=== PATIENT | female | born 1955 | race Caucasian/White ===

== ENCOUNTER 2017-04-23 12:33 | Day surgery (SDC) | payer OTHER ==
[~2017-04-23] VITALS: Ht 157.5 cm; Wt 60.5 kg
[2017-04-23] VITALS (7 sets, daily range): BP systolic 127–143; BP diastolic 53–82; PULSE 54–71; RESP 12–16; O2SAT 95–100
[~2017-04-23 12:33] MED LIST: ESTR0.9T PO; GABA-502 PO; POTA5TAB2 PO; PREM125 PO; TOLT2CAP8 PO
[2017-04-23] MEDS ORDERED: Ondansetron 2 mg/mL 2 mL Inj ONE (12:34)
[2017-04-23] MEDS ORDERED: Glycopyrrolate 0.2 MG/ML 1mL Inj ONE (12:34)
[2017-04-23] MEDS ORDERED: Dexamethasone 4 mg/mL Inj ONE (12:34)
[2017-04-23] MEDS ORDERED: fentaNYL-PF 50 mCg/mL 2 mL Inj ONE (12:34)
[2017-04-23] MEDS ORDERED: Propofol 10 mg/mL 20 mL Inj ONE (12:34)
[2017-04-23] MEDS: Lactated Ringer's 1,000 ML IV SCH ×2 (12:40→17:28)
[2017-04-23] MEDS ORDERED: levoFLOXacin 500 mg/100 mL D5W Premix IV ONE (13:04)
[2017-04-23] MEDS ORDERED: Iopamidol-300 50 mL Inj IV ONE (17:34)
[2017-04-23] MEDS: levoFLOXacin Inj 500 MG in IV Premix 1 EACH IV ONE ×2 (17:35→17:37)
[2017-04-23] MEDS ORDERED: Lactated Ringer's 500 ML IV PRN (17:49)
[2017-04-23] MEDS ORDERED: Lactated Ringer's 1,000 ML IV SCH (17:49)
--- NOTE | 2017-04-23 17:49 | PCM.HPANE ---
Patient Data Surgeon Admitting Provider: Attending Provider:José Luis Constantino MD Primary Care Physician:Oziel Bailey MD Other Provider:Elmer Retana Anesthesia Reason for Visit Left Kidney Stone Ht/WT & BMI Height (Feet): 5 Height (Inches): 2 Weight (Kilograms): 60.5 Body Mass Index 24.00 Allergies Coded Allergies: haloperidol (Verified Adverse Reaction, Severe, hallucinations, 04/23/17) lorazepam (Verified Adverse Reaction, Severe, hallucinations, 04/23/17) Past Anesthesia History Anesthesia History: Denies:: Abnormal Airway, Anesthesia Reactions, Difficult Intubation, Fam Anesthesia Reaction, Malignant Hyperthermia Diabetes History Hx Diabetes?: No MRSA MRSA: No Medications Hypertension Medication: No Home Meds Incl Beta Breann: No Reported Medications Tolterodine Tartrate ER 2 Mg Capsule2 Mg PO DAILY 04/22/17 Estrogens, Conjugated (Premarin)0.9 Mg Tablet0.9 Mg PO 2xweekly 30 Days alternate with 1.25mg dose 04/22/17 Estrogens Conjugated (Premarin)1.25 Mg Tab1.25 Mg PO 5xweekly 30 Days 04/22/17 Potassium Citrate ER 5 Meq Tablet5 Meq PO BID Ref 0 TAKE WITH FOOD 04/22/17 Gabapentin 300 Mg [id number] Mg PO QID Ref 0 04/22/17 Discontinued Reported Medications Ondansetron (Zofran)8 Mg Tablet8 Mg PO Q8H PRN For Nausea 01/02/16 Gabapentin 300 Mg [id number] Mg PO QID Ref 0 01/02/16 Estrogens Conjugated (Premarin)1.25 Mg Tab1.25 Mg PO DAILY 30 Days 01/02/16 History History of ENT Problems?: Yes HEENT History: Positive for:: TMJ (occasional, occas nightguard) Denies:: Abnormal Airway Cataracts Difficult Intubation Dysphagia Glaucoma Hearing Problem Sinus Problem Denture Type: None Teeth Condition: Broken Teeth Hx of Heart Problems?: No Cardiovascular History: Denies:: AICD Abdominal Aortic Aneurism Atrial Fibrillation Cardiac Surgery Chest Pain Congestive Heart Failure Coronary Artery Disease Edema Heart Murmur Hypertension Irregular Heartbeat Pacemaker Peripheral Vascular Rheumatic Fever Thrombophlebitis Valvular Heart Disease Hx of Respiratory Problem?: No Respiratory History: Denies:: Asthma COPD Chest Surgery Cough Dyspnea Emphysema Hemoptysis Oxygen Administration Pneumonia Pulmonary Embolism Tuberculosis Use of C-PAP Machine Use of Inhalers / NEBS Hx Neurologic Problems?: Yes Neurological History: Denies:: Alzheimer's Disease CVA Dementia Dizziness Headaches Multiple Sclerosis Parkinson's Disease Peripheral Neuropathy Seizures TIA Hx of GI Problems?: Yes Other GI Pertinent History: IBS- constipation/ hx of multiple small bowel obstructions Hx of Problems?: Yes Genitourinary History: Positive for:: Kidney Stones (left stone current admission, mult prior stones) Female Hx: Denies:: Currently (hysterectomy) Problems with Breasts? Skin History: Denies:: History Skin Disorders? Pressure Ulcers Hx Musculoskeletal Problems?: No Musculoskeletal History: Denies:: Back Injury Fibromyalgia Joint Replacement Musculoskeletal Trauma Myasthenia Gravis Osteoarthritis Hx of Psycho/Social Problems?: Yes Psycho Social History: Positive for:: Anxiety Hx Depression Hx Surgeries?: Yes (AMOS,APPY,ESWL X5,ELROY,MULT CYSTOS,RT STENT PLCMT & REMOVAL ,LITHOTRIPSY) Hx Any Other Health Problems?: Yes Other History: Denies:: Cancer Hospitalization Thyroid Disease History Blood Transfusions: Positive for:: Accept Blood Products? Denies:: Blood Transfusions Hx Diabetes: No Hx Alcohol Use: YesAlcoholic Drinks Per Day: holidaysHx Substance Use: Yes ( MARIJUANA- daily inhale,pill and edible ) Smoking Status: Former Smoker Have You Smoked inLast 12 mo: No Stop/Bang S-Snoring: Do You Snore Loudly: No T-Tired: feel tired, fatigued: No O-Obsered: Observed not breath: No P-Blood Pressure: treated: No B- Body Mass Index > 35 kg/m2: No A- Age over 50: Yes N- Neck Large Circumference: No G- Gender Male: No RACIEL Total Score: 1 RACIEL Risk Assessment: Low Risk, <3 Yes Risk Assessment Category Category 1A: Patient has history of documented sleep apnea, and HAS NOT received any narcotic, sedative or anesthesia administration during this stay. Category 1B: Patient has history of documented sleep apnea, and HAS received any narcotic , sedative or anesthesia administration during this stay Category 2: Patient has SUSPECTED Obstructive Sleep Apnea, and HAS received any narcotic , sedative or anesthesia administration during this stay. Category 3: Patient has SUSPECTED Obstructive Sleep Apnea and HAS NOT received narcotic, sedative or anesthesia administration during this stay. Category 4: Outpatient in Procedural Areas with known sleep apnea or who screen positive for High Risk via the STOP/BANG questionnaire. Exam Exam Vital Signs Vital Signs Date Time Temp Pulse Resp B/P Pulse Ox O2 Delivery O2 Flow Rate FiO2 04/23/17 13:01 36.4 54 16 131/64 95 Room Air General Appearance: Alert, Oriented X3, Cooperative, No Acute Distress HEENT/AIRWAY: MP 2 Lungs: Clear to Auscultation, Normal Air Movement Heart: Exam Unremarkable, Regular Rate/Rhythm, No Murmurs/Rubs/Gallops Meds/Labs/Diagnostics Admission Meds Current Medications Lactated Ringer's (Lr) 1,000 ml @ 120 mls/hr Q8H20M IV Last administered on t 12:40; Start 04/23/17 at 05:00; Stop 04/23/17 at 13:19; Status DC Plan Impression Patient chart reviewed, patient interviewed and anesthestic plan with risks, benefits, and alternatives discussed, and informed consent obtained. NPO per Anesth. Guidelines: Yes ASA Physical Status: ASA2 Mod Systemic Disease Anesthetic Plan: GA Bene/Risks/Altern/Consents: Yes HP Complete Prior to Induction: Yes Dominic Braden MD Apr 23, 2017 14:53
[2017-04-23] MEDS ORDERED: Labetalol 5 mg/mL 4 mL Inj IV PRN (17:50)
[2017-04-23] MEDS ORDERED: EPHEDrine Sulfate 50 mg/mL Inj IVPUSH PRN (17:50)
[2017-04-23] MEDS ORDERED: Atropine 0.4 mg/mL Inj IVPUSH PRN (17:50)
[2017-04-23] MEDS ORDERED: Phenylephrine 10,000 mCg/mL Inj IVPUSH PRN (17:50)
[2017-04-23] MEDS ORDERED: Ondansetron 2 mg/mL 2 mL Inj IVPUSH PRN (17:50)
[2017-04-23] MEDS ORDERED: HYDROmorphone 1 mg/mL Inj IVPUSH PRN (17:50)
[2017-04-23] MEDS ORDERED: MetoCLOpramide 5 mg/mL 2 mL Inj IVPUSH PRN (17:50)
[2017-04-23] MEDS ORDERED: Belladonna Alk-Opium 60 mg Rectal Suppository RECTAL ONE ×2 (18:23→19:09)
--- NOTE | 2017-04-23 19:24 | PCM.SURGPO ---
Immediate Operative Note Date of Surgery: Apr 23, 2017 Pre Operative Diagnosis L renal calculi Post Operative Diagnosis L renal calculi Procedure Cystoscopy, L ureteroscopy, Holmium laser lithotripsy, basket extraction of calculi fragments, and L ureteral stent placement (modifier 22) Surgeon and Supervisor Blood Surgeon: José Luis Constantino MD Assistants: None Findings Cystoscopy revealed no bladder tumors, lesions, or calculi. L semi-rigid ureteroscopy revealed no calculi in L distal or L mid ureter. A 12/14F x 35cm ureteral access sheath was placed in L ureter. L flexible ureteroscopy revealed no calculi in L proximal ureter and many (>15) L renal calculi ( largest approx. 6-7mm). Holmium laser lithotripsy and basket extraction of calculi fragments were performed. L ureteral stent was placed. Complications There were no periprocedural complications identified. Surgical Specimen Removed: Yes Specimen sent to Pathology: No Surgical Specimen description: L renal calculi and L renal calculi fragments sent to lab for stone analysis Anesthetic Administered: GA Grafts, Implants: Other (28cm x 5F L ureteral JJ stent (no string)) Output, Estimated Blood Loss: <5 Blood Admin during surgery: No Additional information Patient to return to see me in 1-1.5 weeks for cystoscopy, stent removal, and post-op visit, with a KUB prior to appt. José Lusi Constantino MD Apr 23, 2017 19:24
[2017-04-23] MEDS: fentaNYL-PF 50 mCg/mL 2 mL Inj IVPUSH PRN ×2 (19:25→19:31)
--- NOTE | 2017-04-23 19:25 | PCM.DISURG ---
Surgical Discharge Instruction Date of Service Apr 23, 2017 Dates of Hospitalization Date of Hospital Admission Apr 23, 2017 Providers Admitting Physician: José Luis Constantino MD Primary Care Physician: Oziel Bailey MD Attending Physician: José Luis Constantino MD Discharge Diagnosis Discharge Diagnosis L renal calculi Post Operative diagnosis L renal calculi Diet Discharge Diet: No restrictions, Other (Drink at least 10-12 8oz. glasses (3 liters) of fluids per day) Activity Discharge Activity-General: No restrictions, No driving while taking narcotic Dressing and Incisional Care Hygiene: May shower Follow Up Plan Follow-up Provider (F9): José Luis Constantino MD Follow-up appointment: Weeks (1-1.5 weeks for cystoscopy, stent removal, and post-op visit, with a KUB prior to appt.) Call your provider for: Fever, Chills, Vomiting, Other (Pain uncontrolled by pain medication) José Luis Constantino MD Apr 23, 2017 19:25
--- NOTE | 2017-04-23 19:25 | PCM.ANEP1 ---
Post Anesthesia PACU Phase 1 Assessment Vital Signs VSS, see [employer] notes Vital Signs Date Time Temp Pulse Resp B/P Pulse Ox O2 Delivery O2 Flow Rate FiO2 04/23/17 13:01 36.4 54 16 131/64 95 Room Air Anesthetic Administered: GA Level of Alertness: Awake, talking CARDENAS's with Equal Strength: Yes Pain: No Nausea or Vomiting: No CV Function & Hydration Stable: Yes Airway Device: Oxygen Delivery: Simple Mask Lungs: Clear to Auscultation, Normal Air Movement PACU Phase 2 Assessment Complications: No Follow up Care: N/A Patient Instructions Provided: N/A Dominic Braden MD Apr 23, 2017 19:25
[2017-04-23] MEDS ORDERED: oxyCODONE-Acetamin 5-325 mg Tablet PO PRN (19:30)
[2017-04-23] MEDS ORDERED: Phenazopyridine 97.5 mg Tablet ONE (19:54)
--- NOTE | 2017-04-24 09:54 | DRSVH ---
PROCEDURE: X-RAY RETROGRADE UROGRAPHY INDICATIONS: CYSTO, LEFT STENT PLACEMENT, LEFT UTEROSCOPY,LASER TECHNIQUE: One intra-operative images acquired by the Urology service. COMPARISON: None. FINDINGS: Left retrograde pyelography with wire and scope in place, contrast opacified renal collect ing system demonstrated. IMPRESSION: Intraoperative left pyelography. Dictated by: Daniel Parish M.D. on 04/24/2017 at 9:51 Approved by: Daniel Parish M.D. on 04/24/2017 at 9:52
--- NOTE | 2017-04-24 14:55 | OP ---
[address] [address] OPERATIVE REPORT PATIENT: AIDEN LOBO : 1955 MR#: [id number] ADMIT: 04/23/2017 JOB ID: [id number] DATE OF SURGERY: 04/23/2017 PREOPERATIVE DIAGNOSIS(ES): Left renal calculi. POSTOPERATIVE DIAGNOSIS(ES): Left renal calculi. PROCEDURE: 1. Cystoscopy. 2. Left ureteroscopy. 3. Holmium laser lithotripsy. 4. Basket extraction of calculi fragments. 5. Left ureteral stent placement. 6. Modifier 22. SURGEON: José Luis Constantino MD. PATHOLOGY COLLECTOR: None. ANESTHESIA: General. ESTIMATED BLOOD LOSS: Less than 5 mL. SPECIMENS: Left renal calculi and left renal calculi fragments, sent to Lab for stone analysis. DRAINS: A 28 cm x 5-Ugandan left ureteral double-J stent. COMPLICATIONS: None. CONDITION: Stable. FINDINGS: Cystoscopy revealed no bladder tumors, lesions, or calculi. Left semi-rigid ureteroscopy revealed no calculi in the left distal or left mid ureter. A 12/14-Ugandan x 35 cm ureteral access sheath was placed in left ureter. Left flexible ureteroscopy revealed no calculi in the left proximal ureter and many (greater than 15) left renal calculi (largest approximately 6-7 mm). Holmium laser lithotripsy and basket extraction of calculi fragments were performed. Left ureteral stent was placed. INDICATIONS: The patient is a 62-year-old female with left renal calculi. The patient now presents for cystoscopy, left ureteroscopy, holmium laser lithotripsy, basket extraction of calculi fragments and left renal stent placement. DESCRIPTION OF PROCEDURE: The patient was brought to the operating room and placed supine on the operating room table. The patient was given Levaquin IV antibiotic. Sequential compression device boots were placed. General anesthesia was administered. The patient was brought down in the dorsal lithotomy position. The patient was prepped and draped in a standard surgical fashion. A 22-Ugandan rigid cystoscope was placed into the urethra, through the urethra and into the bladder without difficulty. Cystoscopy revealed no bladder tumors, lesions, or calculi, and bilateral ureteral orifices in normal position. An angle-tipped UltraTrack guidewire was passed into the left ureteral orifice and passed up the left ureter into the left renal pelvis. Cystoscope was removed from the patient. The guidewire secured to the drape with a Loli clamp as a safety wire. A semi-rigid ureteroscope was advanced through the urethra, bladder and into the left ureteral orifice with the assistance of a PTFE guidewire. The left distal and left mid ureter were visualized, and no calculi were seen. The PTFE guidewire was advanced up the left ureter into the left renal pelvis. The semi-rigid ureteroscope was removed from the patient. A 12/14-Ugandan x 35 cm ureteral access sheath was passed over the PTFE guidewire through urethra and bladder and up the left ureter into the left mid ureter. The inner portion of the ureteral access sheath and the PTFE guidewire were removed from the patient. A flexible ureteroscope was advanced through the ureteral access sheath into the left mid ureter. Left mid ureter and left proximal ureter were seen to have no calculi. Left flexible ureteroscopy revealed many (greater than 15) left renal calculi, with the largest calculus approximately 6-7 mm. Calculi were fragmented into small fragments using holmium laser lithotripsy using a 273 micron holmium laser fiber. Then, basket extraction of left renal calculi and left renal calculi fragments was performed using a 2.2-Ugandan NCircle Nitinol basket and calculi fragments were sent to the Lab for stone analysis. Of note, a modifier 22 is being applied to this case secondary to the difficulty of the case, secondary to the large number of renal calculi with many (greater than 15) renal calculi treated with holmium laser lithotripsy and basket extraction of calculi fragments and secondary to this case taking at least 50% longer than usual secondary to the difficulty of the case, secondary to the very large amount of calculi which needed to be treated. After holmium laser lithotripsy and basket extraction of calculi and calculi fragments were performed, then the left renal collecting system was visualized. Of note, the left renal collecting system was irrigated using power irrigation with normal saline to flush out any other small fragments. Then, the left renal pelvis and all calices were visualized. No significant larger than 2 mm calculi or calculi fragments were seen. A small amount of contrast was instilled into the left renal collecting system to illuminate the left renal collecting system to illuminate the left renal collecting system to aid in stent placement. The flexible ureteroscope and the ureteral access sheath were backed down the left ureter and the entire left ureter was visualized. No significant larger than 2 mm calculi or calculi fragments were seen. The flexible ureteroscope and ureteral access sheath were removed from the patient leaving the safety guidewire in place. The rigid cystoscope was passed over the safety guidewire through the urethra and into the bladder. A 28 cm x 5-Ugandan ureteral double-J stent, with the stent string removed prior to stent placement, was passed over the guidewire, through the cystoscope and passed up the left ureter and placed so that the proximal pigtail was located in the left renal pelvis and distal pigtail was located in the bladder. The guidewire was removed. Correct positioning of the stent was confirmed both fluoroscopically and under direct visualization using cystoscope, good efflux of contrast could be seen draining from the distal end of the stent into the bladder, further confirming correct stent positioning. Thus, left ureteral stent was placed without difficulty. The left renal calculi and left renal calculi fragments were sent to the Lab for stone analysis. The bladder was drained via the cystoscope. Cystoscope was removed from the patient. Skin was cleaned and dried. The patient was placed in supine position. The patient was awakened from general anesthesia and transferred to the recovery room in stable condition. The patient tolerated procedure well. The postoperative plan is for the patient to return to see me in the office in 1 to 1-1/2 weeks for cystoscopy, stent removal and postoperative visit, with a KUB prior to the appointment.
== END 2017-04-23 23:59 | disposition home or self-care (01) ==
LOC: SAS 12:33
PROVIDERS: ATTEND Urology
DX: N20.0 Calculus of kidney (principal); F41.8 Other specified anxiety disorders; F12.90 Cannabis use, unspecified, uncomplicated; Z87.442 Personal history of urinary calculi; Z87.891 Personal history of nicotine dependence; Z90.710 Acquired absence of both cervix and uterus
CPT/HCPCS: 52356; 74420; 82360; C2617; J1100; J2405; J3010; J7120; Q9967